=== PATIENT | female | born 2000 | race Caucasian/White ===

== ENCOUNTER 2018-02-02 15:36 | Emergency (ER) | payer MEDICAID ==
--- NOTE | 2018-02-02 16:01 | EDPHY ---
H & P Stated Complaint: vaginal discharge and itchy, burning with urination, concerned re yeast inf Time Seen by Provider: 02/02/18 16:01 HPI/ROS: HPI: This is a 17-year-old female who presents with Chief Complaint: vaginal discharge and itchy, burning with urination, concerned re yeast inf Location: Quality: Vaginal discharge Duration: 3 days Signs and Symptoms: no fever, no nausea, no vomiting, no hematemesis, no blood in stool, no abdominal bloating, no diarrhea, no back pain, + burning with urination, no vaginal bleeding, no indigestion, no chest pain, no shortness of breath Timing: Daily Severity: [id number] Context: Patient reports that she is sexually active with the same partner, takes Depo-Provera, but has not had her repeat injection in 6 weeks presents with complaints of 3 day history of cloudy urine, burning with urination accompanied by white vaginal discharge and vaginal pruritus. Patient denies any vaginal bleeding. Treated 3 weeks ago by her OBGYN for bacterial vaginosis ; originally with topical and then with oral antibiotic. Patient unsure of name. Patient reports that she was compliant with all medications. Eating and drinking normally. Denies any back pain/fever/nausea/vomiting/abdominal pain. Modifying Factors: None Comment: ROS: see HPI Constitutional: No fever, no chills, no weight loss Eyes: No blurred vision Respiratory: No shortness of breath, no cough Cardiovascular: No chest pain, no palpitations Gastrointestinal: No nausea, no vomiting, no diarrhea, no hematemesis, no blood in stool Genitourinary: + dysuria, no blood in urine Extremities: No myalgias, no edema Neurologic: No weakness, no numbness Skin: No rashes, no petechiae Hematologic: No bruising, no bleeding MEDICAL/SURGICAL/SOCIAL HISTORY: Medical history: Generally healthy. Does not take any regular medications. Surgical history: Denies Social history: Student. Family history noncontributory. CONSTITUTIONAL: Extremely well-appearing, polite and cooperative, teenage female, awake and alert, no obvious distress HEENT: Atraumatic and normocephalic, PERRL, EOMI. Tympanic membranes clear. Oropharynx clear, no exudate and moist pink mucosa. Airway patent. No lymphadenopathy. No meningismus. Cardiovascular: Normal S1/S2, regular rate, regular rhythm, without murmur rub or gallop. PULMONARY/CHEST: Symmetrical and nontender. Clear to auscultation bilaterally. Good air movement. No accessory muscle usage. ABDOMEN: Soft, nondistended, nontender, no rebound, no guarding, no peritoneal signs, no masses or organomegaly. No CVAT. PELVIC: normal external genitalia, normal cervix, cervical os was closed, no cervical motion tenderness, no adnexal mass, thick white curd like discharge, no bleeding. The exam was performed with a web development director. EXTREMITIES: 2/2 pulses, strength 5/5, no deformities, no clubbing, no cyanosis or edema. NEUROLOGICAL: no focal neuro deficits. GCS 15. SKIN: Warm and dry, no erythema. no rash. Good capillary refill. Source: Patient Exam Limitations: No limitations - Personal History LMP (Females 10-55): Extended Cycle BCP/Inj - Medical/Surgical History Hx Asthma: No Hx Chronic Respiratory Disease: No Hx Diabetes: No Hx Cardiac Disease: No Hx Renal Disease: No Hx Cirrhosis: No Hx Alcoholism: No Hx HIV/AIDS: No Hx Splenectomy or Spleen Trauma: No - Social History Smoking Status: Never smoked Constitutional: Initial Vital Signs Temperature (C) 36.6 C 02/02/18 15:38 Heart Rate 73 02/02/18 15:38 Respiratory Rate 18 02/02/18 15:38 Blood Pressure 114/61 02/02/18 15:38 O2 Sat (%) 98 02/02/18 15:38 O2 Delivery Mode Room Air Allergies/Adverse Reactions: No Known Allergies Allergy (Verified 02/02/18 15:37) Home Medications: Medication Instructions Recorded No Medications [NO [place] 1 [place] [facility] [place]ICATIONS[place] Fluconazole [Diflucan (*)] 150 mg PO ONCE #2 tab 02/02/18 Sulfamethox/Tmp 800/160 mg 1 tab PO BID #14 tab 02/02/18 [Bactrim Ds] Medical Decision Making ED Course/Re-evaluation: Urinalysis, urine , pelvic swabs ordered Vital signs reviewed upon arrival and stable. Abdomen soft and nontender; doubt surgical abdomen. Urinalysis shows infection sent for urine culture; given Bactrim; no signs of pyelonephritis/sepsis Wet prep shows yeast; prescription for Diflucan provided. This patient was seen under the supervision of my secondary supervising physician. I evaluated care for this patient independently. Differential Diagnosis: Differential diagnosis includes but is not limited to urinary tract infection, bacterial vaginosis, gonorrhea, chlamydia, Trichomonas, candidiasis. - Data Points Laboratory Results: 02/02/18 02/02/18 02/02/18 16:40 16:05 16:05 Urine Color Urine Appearance MODERATELY TURBID Urine pH 8.0 H (5.0-7.5) Ur Specific [place] 1.017 (1.002-1.030) Urine Protein NEGATIVE (NEGATIVE) Urine Ketones NEGATIVE (NEGATIVE) Urine Blood 2+ H (NEGATIVE) Urine Nitrate NEGATIVE (NEGATIVE) Urine Bilirubin NEGATIVE (NEGATIVE) Urine Urobilinogen NEGATIVE EU EU (0.2-1.0) Ur Leukocyte Esterase 3+ H (NEGATIVE) Urine RBC 10-15 /hpf H /hpf (0-3) Urine WBC 1-3 /hpf /hpf (0-3) Ur Epithelial Cells 3+ /lpf H /lpf (NONE-1+) Amorphous Sediment PRESENT /hpf /hpf (NONE-1+) Urine Bacteria 2+ /hpf H /hpf (NONE SEEN) Urine Mucus 1+ /lpf /lpf (NONE-1+) Urine Glucose NEGATIVE (NEGATIVE) Urine Test Trichomonas (Wet Prep) NO TRICHOMONAS Rosalinda species DNA POSITIVE H (NEGATIVE) C.trachomatis RNA (TMA) Pending Gardnerella DNA Probe POSITIVE H (NEGATIVE) N.gonorrhoeae RNA (TMA) Pending Trichomonas DNA Probe NEGATIVE (NEGATIVE) 02/02/18 16:05 Urine Color Urine Appearance Urine pH Ur Specific [place] Urine Protein Urine Ketones Urine Blood Urine Nitrate Urine Bilirubin Urine Urobilinogen Ur Leukocyte Esterase Urine RBC Urine WBC Ur Epithelial Cells Amorphous Sediment Urine Bacteria Urine Mucus Urine Glucose Urine Test NEGATIVE Trichomonas (Wet Prep) Rosalinda species DNA C.trachomatis RNA (TMA) Gardnerella DNA Probe N.gonorrhoeae RNA (TMA) Trichomonas DNA Probe Medications Given: Discontinued Medications Trimethoprim/Sulfamethoxazole (Bactrim Ds) 1 ea PO EDNOW ONE PRN Reason: Protocol Stop: 02/02/18 17:01 Last Admin: 02/02/18 17:14 Dose: 1 ea Departure - Departure Disposition: Home, Routine, Self-Care Clinical Impression: Lower urinary tract infection, Candidiasis of vagina Condition: Good Instructions: Urinary Tract Infection in Women (ED), Yeast Infection (ED) Additional Instructions: Please take Bactrim twice a day x7 days for urinary tract infection. Consume a minimum of 8-10 glasses of water or electrolyte fluid replacement drinks that include Gatorade, Powerade, Pedialyte. Please refrain from any sexual intercourse x7 days. Take Diflucan upon filling prescription. If symptoms persist after 72 hr; take another tablet. Referrals: [facility] [Clinic] - 5-7 days, if not improved Prescriptions: Fluconazole [Diflucan (*)] 150 mg PO ONCE #2 tab Sulfamethox/Tmp 800/160 mg [Bactrim Ds] 1 tab PO BID #14 tab Print Language: Ghanaian
[2018-02-02] MEDS ORDERED: SULFAMETHOX/TMP 800/160 MG 1 TAB PO ONE (17:00)
[2018-02-02 17:50] VITALS: BP 122/65
[2018-02-03 12:54] LABS: GC AMPLIFICATION GENPROBE NEGATIVE (NEGATIVE)
== END 2018-02-02 17:48 | disposition home or self-care (01) ==
DX: N39.0 Urinary tract infection, site not specified (principal); B95.2 Enterococcus as the cause of diseases classified elsewhere; B96.20 Unspecified Escherichia coli [E. coli] as the cause of diseases classified elsewhere; B95.1 Streptococcus, group B, as the cause of diseases classified elsewhere; B37.3 Candidiasis of vulva and vagina